=== PATIENT | female | born 1970 | race Caucasian/White ===

== ENCOUNTER 2025-06-10 09:39 | Outpatient (CLI) | payer OTHER, MEDICAID | END 2025-06-10 09:40 | disposition home or self-care (01) | LOC: CSHDTY/OP 09:39 | PROVIDERS: ATTEND Surgery | DX: Z71.3 Dietary counseling and surveillance (principal); E66.01 Morbid (severe) obesity due to excess calories; E11.9 Type 2 diabetes mellitus without complications | CPT/HCPCS: 97802 ==